=== PATIENT | male | born 1950 | race Caucasian/White ===

== ENCOUNTER → 2023-04-23 12:43 | Outpatient (CLI) | payer MEDICARE, SELFPAY ==
--- NOTE | 2023-04-23 14:02 | CT_ITS ---
FINAL REPORT TECHNIQUE: Axial images were obtained through the chest by computed tomography using high-resolution technique. Supine inspiration and expiration and prone inspiration were submitted and reviewed. CLINICAL HISTORY: soa FINDINGS: There is an aberrant right subclavian artery. There is mild vascular calcification of the coronary arteries. There is mild airspace disease in the inferior right upper lobe anteriorly well seen on images 17-20 of series 2, probably related to a small focus of acute pneumonia. There is no evidence of bronchiectasis or septal thickening. The gallbladder is absent. IMPRESSION: Mild airspace disease in the inferior right upper lobe, probably related to a small focus of acute pneumonia. No evidence of bronchiectasis or septal thickening. Reviewed, Interpreted and Dictated by Castillo Sanches MD Transcribed by Patricia Lagos Authenticated and [facility]
== END ==
PROVIDERS: PCP Family Medicine; Visit Provider Internal Medicine Pulmonary Disease
DX: J84.9 Interstitial pulmonary disease, unspecified (principal); R06.09 Other forms of dyspnea
CPT/HCPCS: 71250; 94060; 94618; 94726; 94729

== ENCOUNTER 2023-11-26 07:54 | Outpatient (CLI) | payer MEDICARE, SELFPAY ==
[2023-11-26 08:35] VITALS: PULSE 51; PULSE 52
[2023-11-26] MEDS: ALBUTEROL 0.083% 2.5 MG/3 ML NEB IH (08:35)
== END 2023-11-26 23:59 ==
LOC: RT 07:55
PROVIDERS: PCP Family Medicine; Visit Provider Internal Medicine Pulmonary Disease
DX: R06.09 Other forms of dyspnea (principal)
CPT/HCPCS: 94060; 94618; 94640; 94726; 94729